=== PATIENT | female | born 1950 | race Caucasian/White ===

== ENCOUNTER 2017-09-19 11:11 | Inpatient (IN) | payer OTHER ==
[~2017-09-19] VITALS: Ht 167.6 cm; Wt 98.9 kg
[~2017-09-19 11:11] MED LIST: BUMEX0.5 MG PO; LANTUS100 U/ML SQ
[2017-09-27] MEDS ORDERED: RESTORIL15 MG PO (19:06)
[2017-09-27] MEDS ORDERED: Lantus 1000 UNITS/10 SUBCUTANEO ×2 (19:06)
[2017-09-27] MEDS ORDERED: CIPRO500 MG PO (19:06)
[2017-09-27] MEDS ORDERED: SIMVASTATIN20 MG PO (19:06)
[2017-09-27] MEDS ORDERED: VASOTEC10 MG PO (19:06)
[2017-09-27] MEDS ORDERED: CILOSTAZOL50 MG PO (19:06)
[2017-09-27] MEDS ORDERED: GABAPENTIN800 MG PO (19:06)
== END 2017-09-28 14:21 | disposition home or self-care (01) | DRG 758 ==
LOC: ER 11:11 → SEC-K 22:23 → MEDI 22:23
PROC: BW21ZZZ Computerized Tomography (CT Scan) of Abdomen and Pelvis (ICD-10-PCS; principal; 2017-09-19)
PROC: B020ZZZ Computerized Tomography (CT Scan) of Brain (ICD-10-PCS; 2017-09-22)
PROC: 4A12X4Z Monitoring of Cardiac Electrical Activity, External Approach (ICD-10-PCS; 2017-09-22)
DX: B37.49 Other urogenital candidiasis (principal); R78.81 Bacteremia; E11.65 Type 2 diabetes mellitus with hyperglycemia; Z79.4 Long term (current) use of insulin; I10 Essential (primary) hypertension; E78.00 Pure hypercholesterolemia, unspecified; B96.20 Unspecified Escherichia coli [E. coli] as the cause of diseases classified elsewhere; R00.0 Tachycardia, unspecified

== ENCOUNTER 2017-10-05 21:49 | Emergency (ER) | payer OTHER ==
[~2017-10-05] VITALS: Ht 167.6 cm; Wt 98.9 kg
[~2017-10-05 21:49] MED LIST changes: +CILOSTAZOL50 MG PO; +CIPRO500 MG PO; +GABAPENTIN800 MG PO; +Lantus 1000 UNITS/10 SUBCUTANEO; +RESTORIL15 MG PO; +SIMVASTATIN20 MG PO; +VASOTEC10 MG PO
== END 2017-10-05 23:34 | disposition home or self-care (01) ==
LOC: ER 21:49
DX: S93.402A Sprain of unspecified ligament of left ankle, initial encounter (principal); W01.0XXA Fall on same level from slipping, tripping and stumbling without subsequent striking against object, initial encounter; Y93.01 Activity, walking, marching and hiking; Y92.098 Other place in other non-institutional residence as the place of occurrence of the external cause; Y99.8 Other external cause status